=== PATIENT | female | born 1965 | race Caucasian/White ===

== ENCOUNTER 2016-12-24 12:20 | Emergency (ER) | payer OTHER ==
[2016-12-24 13:47] VITALS: BP 123/82
--- NOTE | 2016-12-24 14:03 | UC ---
Lower Extremity/Ankle HPI - HPI Summary HPI Summary: Pt presents with right knee pain. She tells me that last night she was playing ping pong, planted, and twisted on her right knee. Candor immediate pain on the inside of her knee. Still able to bear weight. She has a history of ligament surgery to this knee as a child - she is unsure exactly which ligaments or what procedure was performed. She has been icing it and taking ibuprofen with minimal relief. She denies numbness, tingling, or redness. - History of Current Complaint Chief Complaint: UCLowerExtremity Stated Complaint: KNEE INJURY Time Seen by Provider: 12/24/16 13:53 Hx Obtained From: Patient Hx Last Menstrual Period: October 28 ?: No Onset/Duration: Sudden Onset Severity Initially: Moderate Severity Currently: Moderate Pain Intensity: 6 Pain Scale Used: 0-10 Numeric Aggravating Factor(s): Standing, Ambulation Alleviating Factor(s): Rest, Ice Able to Bear Weight: Yes - Allergies/Home Medications Allergies/Adverse Reactions: Allergies Allergy/AdvReac Type Severity Reaction Status Date / Time No Known Allergies Allergy Verified 12/24/16 13:46 PMH/Surg Hx/FS Hx/Imm Hx Previously Healthy: Yes - Surgical History Surgical History: Yes Surgery Procedure, Year, and Place: knee surgery 1983 - Social History Occupation: Employed Full-time Lives: With Family Alcohol Use: Daily Alcohol Amount: 1-2 Substance Use Type: None Smoking Status (MU): Never Smoked Tobacco Have You Smoked in the Last Year: No Review of Systems Constitutional: Negative Skin: Negative Respiratory: Negative Cardiovascular: Negative Gastrointestinal: Negative Genitourinary: Negative Neurovascular: Negative Musculoskeletal: Decreased ROM - Right knee, Edema - Right knee, Other: - Pain right knee Neurological: Negative Psychological: Negative All Other Systems Reviewed And Are Negative: Yes Physical Exam Triage Information Reviewed: Yes Appearance: Well-Appearing, Well-Nourished Vital Signs: Initial Vital Signs Temp 98.4 F 12/24/16 13:43 Pulse 90 12/24/16 13:43 Resp 16 12/24/16 13:43 BP 123/82 12/24/16 13:43 Pulse Ox 99 12/24/16 13:43 Vital Signs Reviewed: Yes Musculoskeletal: Positive: Strength Limited @ - Right knee extension and flexion causes pain, ROM Limited @ - Right knee >90deg causes pain. Full extension., Edema @ - Right knee medial joint line, Other: - TTP right medial joint line. Pain on medial side with valgus stress - no increased laxity. No obvious bony deformities. No patella apprehension. Negative Joanna, A/P drawer , Guilherme, and varus stress. Neurological: Positive: Alert Psychological: Positive: Age Appropriate Behavior Lower Extremity Course/Dx - Course Course Of Treatment: XR knee: The visualized bones are well-corticated and properly aligned. The joint spaces are properly maintained. There is no radiographic evidence of joint effusion. There is no acute fracture, dislocation or other focal bony abnormality. She has a knee sleeve at home, which she will start using for compression. Advised to RICE and call Ortho tomorrow for an appointment within 1 week. Ibuprofen for pain - Differential Dx/Diagnosis Differential Diagnosis/HQI/PQRI: Dislocation, Fracture (Closed), Sprain, Strain Provider Diagnoses: Internal derangement of the right knee Discharge - Discharge Plan Condition: Stable Disposition: HOME Patient Education Materials: Knee Sprain (ED) Referrals: Farida Hendricks MD [Primary Care Provider] - Wilfredo Anna MD [Medical Doctor] - As Soon As Possible Additional Instructions: 1) Rest, Ice, Wrap, and elevate your knee 2) Call Orthopedics at the number below to schedule a follow up for their next available appointment time. 3) Ibuprofen OTC for pain If you develop a fever, SOB, chest pain, new or worsening symptoms - please call your PCP or go to the ED.
--- NOTE | 2016-12-24 14:45 | RAD ---
INDICATION: Medial right knee pain since twisting injury the previous night COMPARISON: None TECHNIQUE: 4 view radiograph of the right knee. FINDINGS: The visualized bones are well-corticated and properly aligned. The joint spaces are properly maintained. There is no radiographic evidence of joint effusion. There is no acute fracture, dislocation or other focal bony abnormality. IMPRESSION: Normal knee radiograph as described above. If the patient's symptoms persist, follow-up imaging is recommended.
== END 2016-12-24 15:05 | disposition home or self-care (01) ==
LOC: UCEAST 12:20
DX: M23.91 Unspecified internal derangement of right knee (principal); X50.0XXA Overexertion from strenuous movement or load, initial encounter; Y93.73 Activity, racquet and hand sports; Y92.9 Unspecified place or not applicable; Y99.9 Unspecified external cause status
CPT/HCPCS: 99211; G0463

== ENCOUNTER 2017-07-17 08:01 | Emergency (ER) | payer OTHER ==
[2017-07-17 08:17] VITALS: BP 111/79
--- NOTE | 2017-07-17 09:51 | UC ---
Elbow Pain - HPI Summary HPI Summary: 52 yo female presents with right elbow pain that began 2.5 weeks ago. She tells me that she was moving her family member out of her summer house and later that night noticed some right elbow pain. Has been persisting ever since. Painful when lifting, griping, or stretching. Denies specific injury, numbness, or tingling. Has not taken anything OTC for her pain - History of Current Complaint Chief Complaint: UCUpperExtremity Stated Complaint: ELBOW PAIN Time Seen by Provider: 07/17/17 09:51 Hx Obtained From: Patient Hx Last Menstrual Period: October 28 Onset/Duration: Weeks Severity Initially: Mild Severity Currently: Mild Pain Intensity: 3 Pain Scale Used: 0-10 Numeric - Allergies/Home Medications Allergies/Adverse Reactions: Allergies Allergy/AdvReac Type Severity Reaction Status Date / Time No Known Allergies Allergy Verified 07/17/17 08:17 Home Medications: Home Medications Glucosam/Chondr/Collagn/Hyalur [Th Glucosamine/Chondroiti] 1 cap PO 07/17/17 [ History] PMH/Surg Hx/FS Hx/Imm Hx - Additional Past Medical History Additional PMH: None - Surgical History Surgical History: Yes Surgery Procedure, Year, and Place: knee surgery 1983 - Family History Known Family History: Positive: None - Social History Occupation: Employed Full-time Lives: With Family Alcohol Use: Weekly Alcohol Amount: 1-2 Substance Use Type: None Smoking Status (MU): Never Smoked Tobacco Have You Smoked in the Last Year: No Review of Systems Constitutional: Negative Skin: Negative Respiratory: Negative Cardiovascular: Negative Neurovascular: Negative Musculoskeletal: Other: - Right elbow pain Neurological: Negative Psychological: Negative All Other Systems Reviewed And Are Negative: Yes Physical Exam - Summary Physical Exam Summary: GENERAL: NAD. WDWN. No pain distress. SKIN: No rashes, sores, lesions, or open wounds. NECK: Supple. Nontender. No lymphadenopathy. CHEST: No accessory muscle use. Breathing comfortably and in no distress. CV: RRR. Without m/r/g. Pulses intact radial and ulnar. MSK: Right elbow: Lateral epicondyle TTP. Pain with middle finger extension against resistance at right lateral epicondyle. Positive chair lift test. Strength 5/5 including allergy and immunology chief strength. No edema or obvious bony deformities. NEURO: Alert. Sensations intact hand and all fingers. PSYCH: Age appropriate behavior. Triage Information Reviewed: Yes Vital Signs: Initial Vital Signs Temp 98.8 F 07/17/17 08:13 Pulse 91 07/17/17 08:13 Resp 18 07/17/17 08:13 BP 111/79 07/17/17 08:13 Pulse Ox 99 07/17/17 08:13 Elbow Pain Course/Dx - Course Course Of Treatment: Lateral epicondylitis. Advised to use OTC elbow brace and take ibuprofen prn. Referral to physical therapy - Differential Dx/Diagnosis Provider Diagnoses: Right lateral epicondylitis Discharge - Sign-Out/Discharge Documenting (check all that apply): Discharge/Admit/Transfer - Discharge Plan Condition: Stable Disposition: HOME Patient Education Materials: Tennis Elbow (ED) Referrals: Farida Hendricks MD [Primary Care Provider] - Additional Instructions: If you develop a fever, shortness of breath, chest pain, new or worsening symptoms - please call your PCP or go to the ED. 1) May take 600mg ibuprofen every 6-8 hours as needed for pain 2) Please schedule an appointment with physical therapy for further treatment - Billing Disposition and Condition Condition: STABLE Disposition: Home
== END 2017-07-17 10:06 | disposition home or self-care (01) ==
LOC: UCEAST 08:01
DX: M77.11 Lateral epicondylitis, right elbow (principal)
CPT/HCPCS: 99211; G0463

== ENCOUNTER 2018-04-25 18:12 | Emergency (ER) | payer OTHER ==
[2018-04-25 18:39] VITALS: BP 145/77
--- NOTE | 2018-04-25 19:00 | UC ---
Truncal Trauma HPI - HPI Summary HPI Summary: 52 yo WF c/o right lateral chest wall pain x 2 days after trying to lift something while bent over and hear a "pop" now hurts to move or change position - History Of Current Complaint Chief Complaint: UCGeneralIllness Stated Complaint: RIB INJURY Time Seen by Provider: 04/25/18 18:44 Hx Obtained From: Patient Hx Last Menstrual Period: October 28 ?: No Onset/Duration: Sudden Onset Severity Initially: Moderate Pain Intensity: 2 - Allergies/Home Medications Allergies/Adverse Reactions: Allergies Allergy/AdvReac Type Severity Reaction Status Date / Time No Known Allergies Allergy Verified 04/25/18 18:33 PMH/Surg Hx/FS Hx/Imm Hx Previously Healthy: Yes - Surgical History Surgical History: Yes Surgery Procedure, Year, and Place: knee surgery 1983 - Family History Known Family History: Positive: None - Social History Alcohol Use: Daily Alcohol Amount: 1-2 Substance Use Type: None Smoking Status (MU): Never Smoked Tobacco Have You Smoked in the Last Year: No Review of Systems All Other Systems Reviewed And Are Negative: Yes Constitutional: Positive: Negative Skin: Positive: Negative Eyes: Positive: Negative ENT: Positive: Negative Respiratory: Positive: Negative Cardiovascular: Positive: Negative Genitourinary: Positive: Negative Motor: Positive: Negative Musculoskeletal: Positive: Other: - see HPI Is Patient Immunocompromised?: No Physical Exam - Summary Physical Exam Summary: Vital Signs Reviewed: Yes Appearance: Positive: No Pain Distress Skin: Positive: Warm Head/Face: Positive: Normal Head/Face Inspection Eyes: Positive: Normal ENT: Positive: Normal ENT inspection Neck: Positive: Supple Respiratory/Lung Sounds: Positive: Clear to Auscultation. Negative: Rales, Rhonchi, Wheezes Cardiovascular: Positive: Normal, RRR, S1, S2 Abdomen Description: Positive: Nontender Musculoskeletal: Positive: TTP right lateral chestwall lateral to right breast in region of T5-T6 Neurological: Positive: Normal, CN Intact II-III Psychiatric: Positive: Normal, Affect/Mood Appropriate Vital Signs: Initial Vital Signs Temp 37.0 C 04/25/18 18:33 Pulse 68 04/25/18 18:33 Resp 18 04/25/18 18:33 BP 145/77 04/25/18 18:33 Pulse Ox 98 04/25/18 18:33 Truncal Trauma Course/Dx - Course Course Of Treatment: XR of right ribs- my prelim read NEG for fx, , may be pulled intercostal muscle , pain control, manual splinting - Differential Dx/Diagnosis Provider Diagnosis: Contusion of rib on right side Discharge - Sign-Out/Discharge Documenting (check all that apply): Patient Departure All imaging exams completed and their final reports reviewed: Yes - Discharge Plan Condition: Stable Disposition: HOME Prescriptions: oxyCODONE/Acetamin 5/325 MG* [Percocet 5/325 TAB*] 1 tab PO Q8H PRN 4 Days #12 tab MDD 3 PRN Reason: Pain Patient Education Materials: Rib Contusion (ED), Chest Wall Pain (ED) Referrals: Farida Hendricks MD [Primary Care Provider] - - Billing Disposition and Condition Condition: STABLE Disposition: Home
== END 2018-04-25 19:30 | disposition home or self-care (01) ==
LOC: UCEAST 18:12
DX: S20.211A Contusion of right front wall of thorax, initial encounter (principal); X50.9XXA Other and unspecified overexertion or strenuous movements or postures, initial encounter; Y93.B3 Activity, free weights; Y92.9 Unspecified place or not applicable
CPT/HCPCS: 99212; G0463